=== PATIENT | male | born 1940 | race Caucasian/White ===

== ENCOUNTER → 2017-07-22 | Outpatient (CLI) | payer MEDICARE, BC | END | disposition home or self-care (01) | LOC: GMA 15:20 | PROVIDERS: ATTEND Nurse Practitioner Family | DX: E34.9 Endocrine disorder, unspecified (principal); R53.82 Chronic fatigue, unspecified; E55.9 Vitamin D deficiency, unspecified; D51.3 Other dietary vitamin B12 deficiency anemia; E29.9 Testicular dysfunction, unspecified ==

== ENCOUNTER → 2018-04-01 | Outpatient (CLI) | payer MEDICARE, BC | LOC: GMAM 11:00 | PROVIDERS: ATTEND Family Medicine | DX: E29.9 Testicular dysfunction, unspecified (principal); D51.3 Other dietary vitamin B12 deficiency anemia; E55.9 Vitamin D deficiency, unspecified; Z12.5 Encounter for screening for malignant neoplasm of prostate | CPT/HCPCS: 82306; 82607; 84403; G0103 ==

== ENCOUNTER → 2018-10-10 | Outpatient (CLI) | payer MEDICARE, BC | LOC: GMAM 10:42 | PROVIDERS: ATTEND Family Medicine | DX: D51.3 Other dietary vitamin B12 deficiency anemia (principal); E55.9 Vitamin D deficiency, unspecified ==

== ENCOUNTER 2019-03-25 16:54 | Inpatient (IN) | payer MEDICARE ==
--- NOTE | 2019-03-25 16:55 | HP ---
SUPERVISING PHYSICIAN: Chi Lazo M.D. CHIEF COMPLAINT: Right thumb pain. HISTORY OF PRESENT ILLNESS: This is a 78 year-old male patient who was seeing his physician today, Dr. Lazo, for followup of cellulitis of his right thumb. Approximately 1 week ago he was in the clinic due to right thumb pain and he was put on Bactrim as well as Keflex. He had a followup with nurse practitioner after that for his thumb and it had only slightly improved. Several days ago he became nauseated with some dizziness and felt like his equilibrium was off, so he stopped his antibiotics. When he was in the clinic today his temperature was 102.3 with blood pressure of 100/63, heart rate 88 and O2 sat was 92%. According to his primary care provider, Dr. Lazo, he looked quite ill. We discussed his case and decided to directly admit him to the hospital for cellulitis of the right thumb with concerns for sepsis and failing outpatient therapy. He was brought to the hospital and his initial labs showed a WBC of 8.8 with hemoglobin 12.4, hematocrit 35.9. ESR is pending. Lactic acid is pending. Sodium 128, chloride 95, carbon dioxide 20, BUN 12, creatinine 1.20, glucose 116, serum osmolality 257.8. C reactive protein was 11.6. Blood cultures were drawn. Urinalysis was ordered. Chest x-ray showed no acute cardiopulmonary abnormalities. PAST MEDICAL HISTORY: 1. Anxiety. 2. Coronary artery disease. 3. Hypertension. 4. Hyperlipidemia. 5. Subdural hematoma with resulting seizure disorder. His hematoma was repaired and he no longer has seizures. 6. Sleep apnea. Uses home CPAP. PAST SURGICAL HISTORY: 1. Cataract removal. 2. Scott holes. 3. Cardiac catheterization with stents. OUTPATIENT MEDICATIONS: Per the EMR and awaiting verification. ALLERGIES: NONE. HE DOES HAVE POSSIBLE ADVERSE REACTION TO HIS 2 ANTIBIOTICS THAT HE RECEIVED THIS PAST WEEK WHICH WERE BACTRIM AND CEPHALEXIN. FAMILY HISTORY: Positive for myocardial infarction, coronary artery disease and ovarian cancer. SOCIAL HISTORY: He is retired. He is . He has 1 child. He denies any smoking, ETOH or illicit drug use. REVIEW OF SYSTEMS: Negative except to pain in the right thumb as per History of Present Illness. PHYSICAL EXAMINATION: VITAL SIGNS: Temperature 97.4, heart rate 84, blood pressure 128/71, respiratory rate 16, O2 sat 93% on room air. GENERAL: This is a 78 year-old male patient lying in his hospital bed. He is in no acute distress. HEENT: Normocephalic and atraumatic. Pupils are equal and reactive. Oropharynx is clear. Oral mucous membranes are dry. NECK: Supple without mass. RESPIRATORY: Essentially clear to auscultation bilaterally. CHEST: There is equal rise and fall of the chest with inspiration and expiration. CARDIOVASCULAR: Regular rate and rhythm. GASTROINTESTINAL: Abdomen is soft, nondistended, non-tender. Bowel sounds are positive. LYMPH NODES: There is no cervical adenopathy. EXTREMITIES: His right hand shows erythema to the right thumb in the distal surface. There is also some ecchymosis surrounding that area as well as it is slightly edematous. The area of erythema is marked. It is tender to palpation especially over the distal thumb with warmth noted in that first phalanx. NEUROLOGIC: He is awake, alert and oriented times three. Cranial nerves II-XII are grossly intact. LABORATORY: Labs and films are as per the History of Present Illness. ASSESSMENT: 1. Cellulitis of the right thumb with concerns for developing sepsis or systemic inflammatory response syndrome. He had a temperature of 102.3, CRP of 11.6. Lactic acid and sed rate are pending. He has also failed outpatient therapy. 2. Dehydration secondary to #1 resulting in dizziness with poor equilibrium. 3. Mild electrolyte disturbance mainly hyponatremia and hypochloridemia most likely secondary to #1 and #2. 4. Acute renal insufficiency. Baseline creatinine is about 0.8 to 0.9. It is now 1.2. 5. Hypertension. 6. Coronary artery disease. 7. Hyperlipidemia. 8. Sleep apnea on CPAP at home. PLAN: I have admitted the patient to the hospital. He had a sepsis workup and has received a liter of fluids plus a primary IV. I have also started him on vancomycin and Zosyn. Will monitor his cultures as they become available. I have ordered a thumb x-ray for in the morning as we may need to do further studies depending on the results. He has had Lovenox for DVT prophylaxis and a PPI for ulcer prophylaxis. I will restart his home medications as soon as they are verified. I have done routine lab for in the morning and will continue to monitor him closely and follow as needed. [facility][id number] [facility]
[2019-03-25] MEDS ORDERED: SODIUM CHLORIDE 0.9% 1000ML 1,000 ML IVS PRN (17:00)
[2019-03-25] MEDS ORDERED: SODIUM CHLORIDE 0.9% 1000ML 1,000 ML ONE (17:01)
[2019-03-25] MEDS ORDERED: ONDANSETRON INJ 4 MG/2 ML VIAL IV PRN (19:26)
[2019-03-25] MEDS ORDERED: SODIUM CHLORIDE 0.9% (FLUSH) 10 ML SYG IV PRN (19:26)
[2019-03-25] MEDS ORDERED: PIPERACILLIN/TAZOBACTAM 3.375 GM in SODIUM CHLORIDE 0.9% 100ML 100 ML IVPB ONE (19:35)
--- NOTE | 2019-03-25 19:42 | RAD ---
EXAM DESCRIPTION: XR Chest,1 View CLINICAL HISTORY: 78 years Male fever TECHNIQUE: One view of the chest. COMPARISON: No prior exams provided for comparison. FINDINGS: The lungs are clear without focal consolidation, effusion, or pneumothorax. The cardiomediastinal silhouette and central pulmonary vasculature are normal. No acute osseous abnormalities. IMPRESSION: No acute cardiopulmonary abnormalities. Electronically signed by: Renita Green MD 03/25/2019 7:40 PM CDT
[2019-03-25] MEDS ORDERED: SODIUM CHLORIDE 0.9% 100ML 100 ML IVPB ONE (19:45)
[2019-03-25] MEDS ORDERED: PIPERACILLIN/TAZOBACTAM 3.375 GM VIAL IVPB ONE ×2 (19:45→20:10)
[2019-03-25] MEDS ORDERED: VANCOMYCIN PER PHARMACY INJ SCH (20:00)
[2019-03-25] MEDS: IV SET AND CAP CHANGE INJ INJ SCH (20:07)
[2019-03-25] MEDS ORDERED: VANCOMYCIN HCL INJ 500 MG VIAL ONE (20:10)
[2019-03-25] MEDS ORDERED: SODIUM CHL 0.9% 100ML MINI-BAG 100 ML IVPB ONE (20:10)
[2019-03-25] MEDS ORDERED: VANCOMYCIN HCL INJ 1,000 MG VIAL IVPB ONE (20:10)
[2019-03-25] MEDS ORDERED: SODIUM CHLORIDE 0.9% 250ML 250 ML ONE (20:10)
[2019-03-25] MEDS: ENOXAPARIN SODIUM 40 MG/0.4 ML SYG SUBCU SCH (20:35)
[2019-03-25] MEDS: SODIUM CHLORIDE 0.9% (FLUSH) 10 ML SYG IV SCH (20:36)
[2019-03-25] MEDS ORDERED: VANCOMYCIN HCL INJ 1,000 MG, VANCOMYCIN HCL INJ 250 MG in SODIUM CHLORIDE 0.9% 250ML 25... IVPB ONE (21:00)
[2019-03-25] MEDS: CARVEDILOL 3.125 MG TAB PO SCH (21:04)
[2019-03-25] MEDS: diphenhydrAMINE HCL 25 MG CAP PO SCH (21:04)
[2019-03-25] MEDS: busPIRone HCL 5 MG TAB PO SCH (21:04)
[2019-03-25] MEDS: PIPERACILLIN/TAZOBACTAM 3.375 GM in SODIUM CHLORIDE 0.9% 100ML 100 ML IVPB SCH (23:03)
[2019-03-26] MEDS: PANTOPRAZOLE SODIUM TAB 40 MG PO SCH (06:12)
[2019-03-26] MEDS ORDERED: PIPERACILLIN/TAZOBACTAM 3.375 GM VIAL IVPB ONE ×3 (06:14→20:13)
[2019-03-26] MEDS ORDERED: SODIUM CHL 0.9% 100ML MINI-BAG 100 ML IVPB ONE (06:14)
[2019-03-26] MEDS ORDERED: PANTOPRAZOLE SODIUM IV 40 MG VIAL IV SCH (06:30)
[2019-03-26] MEDS: PIPERACILLIN/TAZOBACTAM 3.375 GM in SODIUM CHLORIDE 0.9% 100ML 100 ML IVPB SCH ×3 (06:31→23:16)
[2019-03-26] MEDS ORDERED: LISINOPRIL 10 MG TAB ONE (07:19)
[2019-03-26] MEDS ORDERED: ATORVASTATIN 20 MG TAB PO ONE (07:19)
[2019-03-26] MEDS ORDERED: ESCITALOPRAM 10 MG TAB ONE (07:20)
[2019-03-26] MEDS: ASPIRIN (ENTERIC COATED) 81 MG TAB PO SCH (09:22)
[2019-03-26] MEDS: ESCITALOPRAM 10 MG TAB PO SCH (09:23)
[2019-03-26] MEDS: CARVEDILOL 3.125 MG TAB PO SCH ×2 (09:23→20:49)
[2019-03-26] MEDS: LISINOPRIL 10 MG TAB PO SCH (09:23)
[2019-03-26] MEDS: busPIRone HCL 5 MG TAB PO SCH ×2 (09:23→20:49)
[2019-03-26] MEDS: SODIUM CHLORIDE 0.9% (FLUSH) 10 ML SYG IV SCH ×2 (09:23→20:54)
--- NOTE | 2019-03-26 11:24 | PN ---
SUPERVISING PHYSICIAN: Chi Lazo MD DATE: 03/26/19 SUBJECTIVE: The patient is lying in bed asleep. He awakens easily. He feels much better today than he has been. He actually feels stronger. He has no complaints of nausea, vomiting, diarrhea, chest pain or shortness of breath. His finger actually does not hurt. OBJECTIVE: VITAL SIGNS: T-max 24 hours is 100. Heart rate 68. Blood pressure 131/71. Respiratory rate 18. O2 saturation 94% on room air. RESPIRATORY: Essentially clear to auscultation bilaterally. CARDIAC: Regular rate and rhythm. GASTROINTESTINAL: Abdomen is soft, nondistended, nontender. Bowel sounds are positive. EXTREMITIES: His bilateral pedal pulses are palpable at +2. The right thumb continues to have some ecchymosis and mild erythema to the distal portion of that thumb. It is much improved from yesterday. The skin has actually wrinkles on it. Erythema is approximately 30% better than the previous markings. There is very minimal tenderness to palpation over that area and there is no warmth. NEUROLOGIC: Awake, alert and oriented times three. LABORATORY: WBCs 7.4, hemoglobin 12.1, hematocrit 35.7. ESR from yesterday is 90. Sodium 129, potassium 4.1, chloride 99. Lactic acid from yesterday is 1.4. Magnesium 2, calcium 8.3. Urinalysis within normal limits. MICROBIOLOGY: Preliminary blood cultures are negative to date. All other labs and films have been reviewed via the EMR. ASSESSMENT: 1. Cellulitis of the right thumb with concerns for developing sepsis or systemic inflammatory response syndrome. His temperature on admission was 102.3, CRP was 11.6, ESR was 90. Lactic acid was within normal limits. He failed outpatient treatment. 2. Dehydration secondary to #1 resulting in dizziness with poor equilibrium, now mostly resolved. 3. Mild electrolyte disturbance, mainly hyponatremia and hypochloremia, improving, most likely secondary to #1 and #2. 4. Acute renal insufficiency, improving. Creatinine 1.2 on admission, today it is 1.15. His baseline is 0.8 to 0.9. 5. Hypertension, stable on medications. 6. Coronary artery disease. 7. Hyperlipidemia. 8. Sleep apnea on CPAP at home. PLAN: We will continue present supportive care. I will hold on lab tomorrow. We will repeat those in a day or so. Continue on his current IV antibiotic therapy. I have encouraged him to ambulate several times daily. I will discontinue his primary IV fluids. I have encouraged good pulmonary hygiene. Hopefully he can be discharged in the next day or so. We will continue to monitor his cultures and follow as needed. #[id number] [facility]
[2019-03-26] MEDS ORDERED: VANCOMYCIN HCL INJ 1,000 MG VIAL IVPB ONE (12:31)
[2019-03-26] MEDS ORDERED: VANCOMYCIN HCL INJ 500 MG VIAL ONE (12:31)
[2019-03-26] MEDS ORDERED: SODIUM CHLORIDE 0.9% 250ML 250 ML ONE (12:31)
[2019-03-26] MEDS: VANCOMYCIN HCL INJ 1,000 MG, VANCOMYCIN HCL INJ 500 MG in SODIUM CHLORIDE 0.9% 250ML 25... IVPB SCH (12:36)
[2019-03-26] MEDS ORDERED: SODIUM CHLORIDE 0.9% 100ML 100 ML IVPB ONE ×2 (15:26→20:13)
[2019-03-26] MEDS ORDERED: ACETAMINOPHEN 325 MG TAB ONE (17:04)
[2019-03-26] MEDS ORDERED: ACETAMINOPHEN 325 MG TAB PO PRN (17:06)
[2019-03-26] MEDS: ENOXAPARIN SODIUM 40 MG/0.4 ML SYG SUBCU SCH (20:49)
[2019-03-26] MEDS: ATORVASTATIN 20 MG TAB PO SCH (20:49)
[2019-03-26] MEDS: diphenhydrAMINE HCL 25 MG CAP PO SCH (20:49)
[2019-03-27] MEDS ORDERED: PIPERACILLIN/TAZOBACTAM 3.375 GM VIAL IVPB ONE (05:07)
[2019-03-27] MEDS ORDERED: SODIUM CHLORIDE 0.9% 100ML 100 ML IVPB ONE (05:08)
[2019-03-27] MEDS: PANTOPRAZOLE SODIUM TAB 40 MG PO SCH (06:09)
[2019-03-27] MEDS: PIPERACILLIN/TAZOBACTAM 3.375 GM in SODIUM CHLORIDE 0.9% 100ML 100 ML IVPB SCH (06:38)
[2019-03-27] MEDS: ESCITALOPRAM 10 MG TAB PO SCH (08:08)
[2019-03-27] MEDS: LISINOPRIL 10 MG TAB PO SCH (08:08)
[2019-03-27] MEDS: CARVEDILOL 3.125 MG TAB PO SCH ×2 (08:08→21:07)
[2019-03-27] MEDS: busPIRone HCL 5 MG TAB PO SCH ×2 (08:08→21:07)
[2019-03-27] MEDS: SODIUM CHLORIDE 0.9% (FLUSH) 10 ML SYG IV SCH ×2 (08:08→22:17)
[2019-03-27] MEDS: ASPIRIN (ENTERIC COATED) 81 MG TAB PO SCH (08:08)
[2019-03-27] MEDS ORDERED: VANCOMYCIN HCL INJ 500 MG VIAL ONE (12:37)
[2019-03-27] MEDS ORDERED: SODIUM CHLORIDE 0.9% 250ML 250 ML ONE (12:38)
[2019-03-27] MEDS ORDERED: VANCOMYCIN HCL INJ 1,000 MG VIAL IVPB ONE (12:38)
[2019-03-27] MEDS: VANCOMYCIN HCL INJ 1,000 MG, VANCOMYCIN HCL INJ 500 MG in SODIUM CHLORIDE 0.9% 250ML 25... IVPB SCH (12:45)
--- NOTE | 2019-03-27 17:51 | PN ---
DATE: 03/27/19 SUPERVISING PHYSICIAN: Arnaldo Minor M.D. SUBJECTIVE: The patient is walking around in his room. He feels much better. He has no complaints of shortness of breath, nausea, vomiting, diarrhea or constipation. His thumb feels much better. We discussed his discharge planning and he agreed to see Dr. Reyes on Saturday. OBJECTIVE: VITAL SIGNS: Temperature 99.1, heart rate 68, blood pressure 123/68, respiratory rate 18, O2 sat 95% on room air. RESPIRATORY: Essentially clear to auscultation bilaterally. CARDIAC: Regular rate and rhythm. GASTROINTESTINAL: Abdomen is soft, nondistended, non-tender. Bowel sounds are positive. EXTREMITIES: That right thumb continues to be ecchymotic, but there is no edema or erythema. There is no drainage. It continues to improve daily. Very minimal pain to palpation. NEUROLOGIC: He is awake, alert and oriented times three. LABORATORY: Preliminary blood cultures show no growth after 24 hours. All other labs and films have been reviewed via the EMR. ASSESSMENT: 1. Cellulitis of the right thumb with concerns for developing sepsis or systemic inflammatory response syndrome. His temperature on admission was 102.3, CRP was 11.6, ESR was 90. Lactic acid was within normal limits. He failed outpatient treatment. 2. Dehydration secondary to #1 resulting in dizziness with poor equilibrium, now mostly resolved. 3. Mild electrolyte disturbance, mainly hyponatremia and hypochloremia, improving, most likely secondary to #1 and #2. 4. Acute renal insufficiency that is improving. Creatinine was 1.2 on admission. His baseline is 0.8 to 0.9. 5. Hypertension, stable on medications. 6. Coronary artery disease. 7. Hyperlipidemia. 8. Sleep apnea on CPAP at home. PLAN: We will continue present supportive care, including his vancomycin. I spoke with Dr. Reyes, Infectious Diseases physician in [place]. She suggested that the Zosyn be discontinued and that he continue on vancomycin as an inpatient through Saturday, then he could be discharged at that time. He would need to keep his IV if possible and she will see him in the office on Saturday at 9:00 AM and she would discuss further antibiotic treatment. I will continue to hold off on lab and redo it all Saturday morning, including a CRP and his ESR. I will also do a thumb x-ray on Saturday. Otherwise will continue to monitor closely and follow as needed. [facility][id number] [facility]
[2019-03-27] MEDS: diphenhydrAMINE HCL 25 MG CAP PO SCH (21:07)
[2019-03-27] MEDS: ATORVASTATIN 20 MG TAB PO SCH (21:07)
[2019-03-27] MEDS: ENOXAPARIN SODIUM 40 MG/0.4 ML SYG SUBCU SCH (21:08)
[2019-03-28] MEDS: PANTOPRAZOLE SODIUM TAB 40 MG PO SCH (06:22)
[2019-03-28] MEDS: busPIRone HCL 5 MG TAB PO SCH ×2 (09:33→20:39)
[2019-03-28] MEDS: SODIUM CHLORIDE 0.9% (FLUSH) 10 ML SYG IV SCH ×2 (09:34→20:39)
[2019-03-28] MEDS: CARVEDILOL 3.125 MG TAB PO SCH ×2 (09:34→20:39)
[2019-03-28] MEDS: ESCITALOPRAM 10 MG TAB PO SCH (09:34)
[2019-03-28] MEDS: LISINOPRIL 10 MG TAB PO SCH (09:34)
[2019-03-28] MEDS: ASPIRIN (ENTERIC COATED) 81 MG TAB PO SCH (09:34)
[2019-03-28] MEDS: VANCOMYCIN HCL INJ 1,000 MG, VANCOMYCIN HCL INJ 500 MG in SODIUM CHLORIDE 0.9% 250ML 25... IVPB SCH (13:12)
[2019-03-28] MEDS ORDERED: SODIUM CHLORIDE 0.9% 250ML 250 ML ONE (13:51)
[2019-03-28] MEDS ORDERED: VANCOMYCIN HCL INJ 500 MG VIAL ONE (13:51)
[2019-03-28] MEDS ORDERED: VANCOMYCIN HCL INJ 1,000 MG VIAL IVPB ONE (13:51)
--- NOTE | 2019-03-28 15:14 | PN ---
DATE: 03/28/19 SUPERVISING PHYSICIAN: Arnaldo Minor M.D. SUBJECTIVE: The patient is sitting up in bed. He has been walking the hallways. Has no complaints of nausea, vomiting, diarrhea or constipation, chest pain or shortness of breath. He feels much, much better than on admission. We discussed his discharge plan tomorrow is to keep his IVs, to see Dr. Reyes on Saturday morning at 9:00 AM for further evaluation of cellulitis of his thumb. OBJECTIVE: VITAL SIGNS: Temperature 99.6, heart rate 77, blood pressure 157/64, respiratory rate 18, O2 sat 95% on room air. RESPIRATORY: Essentially clear to auscultation bilaterally. CARDIAC: Regular rate and rhythm. GASTROINTESTINAL: Abdomen is soft, nondistended, non-tender. Bowel sounds are positive. EXTREMITIES: His right thumb continues to be ecchymotic but there is no edema or erythema. There is some skin that is sloughing off around the previous area of induration. No fluctuance. No drainage. NEUROLOGIC: He is awake, alert and oriented times three. LABORATORY: Preliminary blood cultures show no growth after 48 hours. All other labs and films have been reviewed via the EMR. ASSESSMENT: 1. Cellulitis of the right thumb with concerns for developing sepsis or systemic inflammatory response syndrome. His temperature on admission was 102.3, CRP was 11.6, ESR was 90. Lactic acid was within normal limits. He failed outpatient treatment. 2. Dehydration secondary to #1 resulting in dizziness with poor equilibrium, now mostly resolved. 3. Mild electrolyte disturbance, mainly hyponatremia and hypochloremia, improving, most likely secondary to #1 and #2. 4. Acute renal insufficiency that is improving. Creatinine was 1.2 on admission. His baseline is 0.8 to 0.9. 5. Hypertension, stable on medications. 6. Coronary artery disease. 7. Hyperlipidemia. 8. Sleep apnea on CPAP at home. PLAN: We will continue present supportive care, including his vancomycin. He will get 1 dose in the morning and then hopefully he can be discharged to see Dr. Reyes in [place] on Saturday to continue his antibiotic therapy. It is to be noted he is to keep his IV for possible IV infusion therapy at Dr. Reyes's office. I have also made him an appointment to followup with Dr. Lazo. I will also check his ESR and CRP tomorrow. We need to get a disc from radiology so he can take it to Dr. Reyes's office on Saturday. Will continue to monitor closely and follow as needed. #[id number] [facility]
[2019-03-28] MEDS: diphenhydrAMINE HCL 25 MG CAP PO SCH (20:38)
[2019-03-28] MEDS: ATORVASTATIN 20 MG TAB PO SCH (20:39)
[2019-03-28] MEDS: ENOXAPARIN SODIUM 40 MG/0.4 ML SYG SUBCU SCH (20:39)
[2019-03-28] MEDS: IV SET AND CAP CHANGE INJ INJ SCH (22:39)
[2019-03-29] MEDS: PANTOPRAZOLE SODIUM TAB 40 MG PO SCH (06:07)
--- NOTE | 2019-03-29 06:32 | RAD ---
RIGHT BASILAR 03/29/2019 CLINICAL HISTORY: Cellulitis COMPARISON: None TECHNIQUE: Three views of the right thumb FINDINGS: No acute fracture. No dislocation. Narrowing of the interphalangeal joint. Juxta articular mild bony hypertrophy within the base of the distal phalanx. No fracture. No foreign body or subcutaneous emphysema. Generalized decreased bone density. IMPRESSION: 1. Right thumb interphalangeal osteoarthritis. No acute finding. Electronically signed by: Erica Sheridan DO 03/29/2019 6:29 AM CDT
[2019-03-29] MEDS ORDERED: VANCOMYCIN HCL INJ 1,000 MG, VANCOMYCIN HCL INJ 500 MG in SODIUM CHLORIDE 0.9% 250ML 25... IVPB SCH (08:00)
[2019-03-29] MEDS ORDERED: SODIUM CHLORIDE 0.9% 250ML 250 ML ONE (08:32)
[2019-03-29] MEDS ORDERED: VANCOMYCIN HCL INJ 500 MG VIAL ONE (08:32)
[2019-03-29] MEDS ORDERED: VANCOMYCIN HCL INJ 1,000 MG VIAL IVPB ONE (08:33)
[2019-03-29] MEDS: CARVEDILOL 3.125 MG TAB PO SCH (08:58)
[2019-03-29] MEDS: busPIRone HCL 5 MG TAB PO SCH (08:58)
[2019-03-29] MEDS: LISINOPRIL 10 MG TAB PO SCH (08:58)
[2019-03-29] MEDS: ASPIRIN (ENTERIC COATED) 81 MG TAB PO SCH (08:58)
[2019-03-29] MEDS: ESCITALOPRAM 10 MG TAB PO SCH (08:58)
[2019-03-29] MEDS: SODIUM CHLORIDE 0.9% (FLUSH) 10 ML SYG IV SCH (08:59)
[2019-03-29 13:42] VITALS: BP 134/75; TEMP 97; O2SAT 98
--- NOTE | 2019-03-31 09:08 | DS ---
SUPERVISING PHYSICIAN: Arnaldo Minor MD DISCHARGE DIAGNOSIS: 1. Cellulitis of the right thumb with concerns for developing sepsis or systemic inflammatory response syndrome. His temperature on admission was 102.3, CRP was 11.6, ESR was 90. Lactic acid was within normal limits. He failed outpatient treatment. 2. Dehydration secondary to #1 resulting in dizziness with poor equilibrium, now mostly resolved. 3. Mild electrolyte disturbance, mainly hyponatremia and hypochloremia, improving, most likely secondary to #1 and #2. 4. Acute renal insufficiency that is improving. Creatinine was 1.2 on admission. His baseline is 0.8 to 0.9. 5. Hypertension, stable on medications. 6. Coronary artery disease. 7. Hyperlipidemia. 8. Sleep apnea on CPAP at home. HISTORY OF PRESENT ILLNESS: This is a 78-year-old male patient who was seeing his physician today, Dr. Lazo, for followup of cellulitis of his right thumb. One week prior to his admission, he was in the clinic due to right thumb pain and he was put on Bactrim as well as Keflex. He had a followup and it had not improved. Several days later, he continued to show no improvement, plus he had some nausea with dizziness and felt like his equilibrium was off, so he stopped his antibiotics. He saw his primary care provider the next day, which is today, with a temperature of 102.3 with blood pressure of 100/63, heart rate 88 and O2 sat was 92%. He looked quite ill in the office and he was directly admitted to the hospital for for cellulitis of the right thumb with concerns for sepsis and failing outpatient therapy. HOSPITAL COURSE: His initial labs in the hospital were initially unremarkable and blood cultures were done. His C-reactive protein was high at 11.6 and his ESR was 90. He was started on vancomycin and Zosyn as well as given some fluids. He was placed on Lovenox for DVT prophylaxis and proton pump inhibitor for ulcer prophylaxis. His home medications were restarted. Chest x-ray was unremarkable. He needed very little pain management and he continued with aggressive pulmonary hygiene. I talked with Dr. Reyes, infectious diseases physician in [place], and she suggested the Zosyn be discontinued and continued on the vancomycin. She wanted him to get a dose of vancomycin through Saturday and then he could be discharged at that time. He was to followup with her on Saturday morning at 9 o'clock to discuss further treatment. Over the course of his treatment, his right thumb improved greatly. It was initially extremely swollen, erythematous with some ecchymosis and erythema. There was no drainage or fluctuance. He has good range of motion. Today, he will be discharged home with close followup with Dr. Lazo as well as Dr. Reyes in [place]. LABORATORY: Initial WBCs 8.8. Followup WBCs 7.4. Hemoglobin was stable at 12.1 with hematocrit 35.7. ESR 90. Sodium improved to 129, which was stable. Potassium 4.1. Chloride slightly low at 99. Glucose 121. Lactic acid 1.8, calcium slightly low at 8.3. C-reactive protein was 11.1. Urinalysis was within normal limits. MICROBIOLOGY: Preliminary blood culture showed no growth after 4 days. RADIOLOGY: Thumb x-ray this morning shows right thumb interphalangeal osteoarthritis, no acute findings. DISCHARGE PLAN: The patient will be discharged home in stable condition. It is to be noted that his IV was left in so he could be given IV antibiotics if necessary at Dr. Reyes's office tomorrow. Dr. Reyes's office will discontinue the IV at that time. He is to resume his usual diet and increase his activity as tolerated. All of his home medications have been restarted. He was not given any antibiotics as that will be up to Dr. Reyes. He has a followup appointment with Dr. Reyes on 03/30/19 at 9 AM. He has a followup appointment with his primary care physician, Dr. Lazo, on 04/01/19 at 3:15 PM. He is to return to the hospital or call Dr. Lazo's office for any problems or complications. DISCHARGE MEDICATIONS: 1. Atorvastatin. 2. Carvedilol. 3. Lisinopril. 4. Lexapro. 5. Buspirone. 6. Aspirin. 7. Diphenhydramine. 8. Folic acid. 9. Coenzyme Q10. 10. Cyanocobalamin. 11. Vitamin D3. 12. Prilosec. 13. Multivitamins. 14. Nitroglycerin. #[id number] [facility]
== END 2019-03-29 11:30 | disposition home or self-care (01) | DRG 603 ==
LOC: MS 16:54
PROVIDERS: ADMIT Nurse Practitioner Acute Care; ATTEND Nurse Practitioner Acute Care
DX: L03.011 Cellulitis of right finger (principal); E87.1 Hypo-osmolality and hyponatremia; E86.0 Dehydration; N28.9 Disorder of kidney and ureter, unspecified; I10 Essential (primary) hypertension; I25.10 Atherosclerotic heart disease of native coronary artery without angina pectoris; E78.5 Hyperlipidemia, unspecified; G47.30 Sleep apnea, unspecified; F41.9 Anxiety disorder, unspecified; Z95.5 Presence of coronary angioplasty implant and graft; Z88.1 Allergy status to other antibiotic agents

== ENCOUNTER → 2019-04-01 | Outpatient (CLI) | payer MEDICARE | LOC: GMAM 17:02 | PROVIDERS: ATTEND Family Medicine | DX: L03.818 Cellulitis of other sites (principal) ==

== ENCOUNTER → 2019-06-01 | Outpatient (CLI) | payer MEDICARE | LOC: GMAM 11:36 | PROVIDERS: ATTEND Family Medicine | DX: Z12.5 Encounter for screening for malignant neoplasm of prostate (principal); E53.8 Deficiency of other specified B group vitamins; E55.9 Vitamin D deficiency, unspecified; I10 Essential (primary) hypertension | CPT/HCPCS: 82306; 82607; G0103 ==

== ENCOUNTER 2020-05-09 05:41 | Emergency (ER) | payer MEDICARE ==
[2020-05-09] MEDS ORDERED: HYDROcodone 7.5MG/APAP 325MG 1 EA TAB PO ONE (06:03)
--- NOTE | 2020-05-09 06:14 | ED.PDOC ---
History of Present Illness - General Chief Complaint: Trauma Stated Complaint: rib pain Time Seen by Provider: 05/09/20 06:02 - History of Present Illness Initial Comments: 79 yo pleasant male with a pmh of CAD (4 stents), HTN comes in with with c/c of left flank pain. states he fell 2 days ago after trying to move a trailer and fell backwards. did not have loc. no head pain. pain worse with palpation and movement. Has tried alleve and lidocaine patches without benefit. Denies chest pain, shortness of breath, n/v/d. not on blood thinners, no midline back pain, no weakness, no change in bowels or urine. 8 years ago patient did slip and fall on ice, had a severe ICH requiring neurosurgery/eugenio holes. He was on plavix at that time. Allergies/Adverse Reactions: Allergies NO KNOWN ALLERGY Allergy (Verified 05/09/20 05:57) Home Medications: Ambulatory Orders Aspirin [Aspirin Adult Low Strengt] 81 mg PO DAILY 03/25/19 Atorvastatin Calcium 40 mg PO DAILY 03/25/19 Carvedilol 3.125 mg PO BID 03/25/19 Cholecalciferol [D3 Vitamin] 400 unit PO DAILY 03/25/19 Coenzyme Q10 (Ubidecarenone) [Co Q-10] 100 mg PO DAILY 03/25/19 Cyanocobalamin [B12] 1,500 mcg PO DAILY 03/25/19 Escitalopram Oxalate [Lexapro] 20 mg PO DAILY 03/25/19 Folic Acid 400 mcg PO DAILY 03/25/19 Lisinopril 20 mg PO DAILY 03/25/19 Multiple Vitamins W/ Minerals [Preservision Areds] 1 tab PO BID 03/25/19 Nitroglycerin 0.4 SL PRN 03/25/19 Omeprazole [Prilosec Cap] 20 mg PO DAILY 03/25/19 busPIRone HCL [Buspar] 5 mg PO BID 03/25/19 diphenhydrAMINE HCL [Benadryl] 25 mg PO BEDTIME 03/25/19 Calcium 500 mg PO DAILY 05/09/20 Magnesium 250 mg PO DAILY 05/09/20 Review of Systems - Review of Systems Constitutional: Denies: diaphoresis, fever, malaise EENTM: Denies: eye pain, blurred vision, tearing, double vision, ear pain, ear discharge Respiratory: Denies: cough, orthopnea, short of breath, stridor Cardiology: Denies: chest pain, edema, palpitations, syncope Gastrointestinal/Abdominal: Denies: abdominal pain, constipation, diarrhea, nausea, vomiting Musculoskeletal: States: back pain. Denies: joint pain, joint swelling, muscle pain, muscle stiffness, neck pain Skin: Denies: change in color, dryness, rash Neurological: Denies: depressed, headache, numbness, paresthesia, tingling, tremors Hematologic/Lymphatic: Denies: anemia, blood clots All other Systems: Reviewed and Negative Past Medical History (General) - Patient Medical History Hx Seizures: Yes - x1 with a fall and brain bleed and eugenio holes Hx Stroke: No Hx Dementia: No Hx Asthma: No Hx of COPD: No Hx Cardiac Disorders: Yes - 4 cardiac stents Hx Congestive Heart Failure: No Hx Pacemaker: No Hx Hypertension: Yes Hx Thyroid Disease: No Hx Diabetes: No Hx Gastroesophageal Reflux: Yes Hx Renal Disease: No Hx Cancer: No Hx of HIV: No Hx Hepatitis C: No Hx MRSA: No Surgical History: tonsillectomy - Vaccination History Hx Tetanus, Diphtheria Vaccination: Yes - 2019 Hx Influenza Vaccination: Yes Hx Pneumococcal Vaccination: Yes - Social History Hx Tobacco Use: No Hx Alcohol Use: Yes - daily either beer, wine or liquor Hx Substance Use: No Hx Physical Abuse: No Hx Emotional Abuse: No Family Medical History - Family History Father Living Status: Hx Cardiac Disease: Yes Mother Living Status: Still Living Physical Exam - Physical Exam General Appearance: Alert, Comfortable, No apparent distress, Well Developed, Well Groomed, Well Hydrated, Well Nourished Ears, Nose, Throat: hearing grossly normal, normal ENT inspection, normal pharynx Neck: full range of motion, supple, normal inspection, carotid bruit Respiratory: chest non-tender, lungs clear, normal breath sounds, no respiratory distress Cardiovascular/Chest: normal peripheral pulses, regular rate, rhythm, no edema, no gallop, no JVD, no murmur Peripheral Pulses: radial,right: 2+, radial,left: 2+, dorsalis pedis,right: 2+ Gastrointestinal/Abdominal: normal bowel sounds, non tender, soft, no organomegaly, no pulsatile mass Rectal Exam: deferred Back Exam: normal inspection, other - left cva tenderness, even to light touch. 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 no rojas sign, no raccoon eyes, no nasal drainage. Progress - Progress Progress: 05/09/20 06:24 The data reviewed when caring for this patient included: nurse notes etc. The history and assessments from nurses notes were reviewed and considered, and the patient's home medication list was also reviewed and considered. My assessment and the results of testing completed here in the ED were discussed with the patient/family. All questions were answered, and they express understanding of my assessment and the plan. FAST Exam negative. Given norco 7.5 mg. Will give morphine if pain continues. Xray ribs, CT head. 05/09/20 06:38 when patient left for xray does note he does not have the best memory since his ICH in 2011. Xray shows bilateral posterior rib fracture age undetermined. Due to age, hx of memory problems, hx ICH, will order CT head, chest, abdomen and pelvis. 05/09/20 07:[address] Gomez. Pending labs, CT scans, pain control. Departure - Departure Clinical Impression: Fall (on) (from) unspecified stairs and steps, initial encounter Ribs, multiple fractures Qualifiers: Encounter type: initial encounter Fracture type: closed Laterality: bilateral Qualified Code(s): S22.43XA - Multiple fractures of ribs, bilateral, initial encounter for closed fracture Condition: Fair Departure Forms: ED Discharge - Pt. Copy, Patient Portal Self Enrollment Instructions: DI for Trauma Referrals: Chi Lazo MD [Primary Care Provider] - 1-2 Weeks Home Medications: Ambulatory Orders Aspirin [Aspirin Adult Low Strengt] 81 mg PO DAILY 03/25/19 Atorvastatin Calcium 40 mg PO DAILY 03/25/19 Carvedilol 3.125 mg PO BID 03/25/19 Cholecalciferol [D3 Vitamin] 400 unit PO DAILY 03/25/19 Coenzyme Q10 (Ubidecarenone) [Co Q-10] 100 mg PO DAILY 03/25/19 Cyanocobalamin [B12] 1,500 mcg PO DAILY 03/25/19 Escitalopram Oxalate [Lexapro] 20 mg PO DAILY 03/25/19 Folic Acid 400 mcg PO DAILY 03/25/19 Lisinopril 20 mg PO DAILY 03/25/19 Multiple Vitamins W/ Minerals [Preservision Areds] 1 tab PO BID 03/25/19 Nitroglycerin 0.4 SL PRN 03/25/19 Omeprazole [Prilosec Cap] 20 mg PO DAILY 03/25/19 busPIRone HCL [Buspar] 5 mg PO BID 03/25/19 diphenhydrAMINE HCL [Benadryl] 25 mg PO BEDTIME 03/25/19 Calcium 500 mg PO DAILY 05/09/20 Magnesium 250 mg PO DAILY 05/09/20
--- NOTE | 2020-05-09 06:29 | RAD ---
EXAM DESCRIPTION: X-ray single view chest. CLINICAL HISTORY: 79 years Male, fall COMPARISON: 03/25/2019 TECHNIQUE: Single portable x-ray view of the chest performed on 05/09/2020 at 5:57 AM FINDINGS: The lungs are well expanded and are clear. There is probable minimal fibrosis and/or subsegmental atelectasis in the lung bases. There is no evidence of a pneumothorax. The cardiac silhouette is stable and mildly prominent. The mediastinal contours are normal. There are age indeterminate fractures of the posterior lateral right right fourth and fifth ribs. There are questionable fractures involving the posterior right seventh and eighth ribs. No focal soft tissue abnormalities are seen. Lines and tubes: None. IMPRESSION: 1. Minimal fibrosis and/or atelectasis suspected in the inferior hemithoraces. 2. Age indeterminant fractures of the posterior lateral right fourth and fifth ribs and possibly posterior right seventh and eighth ribs. Electronically signed by: Ashley Calero DO 05/09/2020 6:27 AM CDT
--- NOTE | 2020-05-09 07:44 | CT ---
EXAMINATION: CT Head without contrast INDICATION: Fall. Head injury. COMPARISON: November 09, 2013 TECHNIQUE: Axial CT scan of the head was obtained without intravenous contrast. Coronal and sagittal reformats were provided for further interpretation. This CT exam was performed using one or more of the following dose reduction techniques: Automated exposure control, Adjustment of the mA and/or kV according to patient size, Use of iterative reconstruction technique FINDINGS: Basilar Cisterns: Intact. Brain: Symmetric extra-axial spaces. Fernandes-white matter differentiation is maintained. No intracranial hemorrhage. Ventricles: No hydrocephalus. No mass effect or midline shift. Orbits Orbits and orbital contents are grossly normal. Bones: Prior eugenio hole in the high left frontal lobe as seen on prior studies. Soft tissues: Intact Sinuses: Clear Mastoid air cells: Clear IMPRESSION: No intracranial hemorrhage, mass effect, or midline shift. Electronically signed by: Ray Bar MD 05/09/2020 7:42 AM CDT
--- NOTE | 2020-05-09 07:53 | CT ---
EXAMINATION: CT chest, abdomen, and pelvis with contrast. INDICATION: Fall. Chest and abdominal pain. COMPARISON: None TECHNIQUE: Axial CT scan of the chest, abdomen, and pelvis was obtained after the uneventful administration of intravenous contrast. Coronal and sagittal reformats were provided. This CT exam was performed using one or more of the following dose reduction techniques: Automated exposure control, Adjustment of the mA and/or kV according to patient size, Use of iterative reconstruction technique FINDINGS: PULMONARY ARTERY: Normal in caliber. HEART: Heart is normal in size. Coronary artery calcifications are present. THORACIC AORTA: Minimal atheromatous changes throughout the thoracic aorta. No aneurysm CHEST WALL: Normal THYROID: No thyroid nodules. THORACIC LYMPH NODES: No pathologically enlarged axillary, mediastinal, or hilar lymph nodes. PRIMARY AIRWAYS: Primary airways are patent. LUNGS: Bilateral lower and posterior lung airspace opacities, favored to represent chronic fibrotic changes. No pleural effusion. No suspicious nodules. CHEST OSSEOUS STRUCTURES: Healed fracture of the posterolateral fourth, fifth right ribs. There are incompletely healed fractures of the posterior sixth sixth and seventh right ribs. Moderate degenerative changes of both shoulders. OTHER THORACIC FINDINGS: N/A LIVER: Cyst within the left hepatic lobe measuring GALLBLADDER AND CBD: Normal. PANCREAS: Normal. SPLEEN: Not enlarged. ADRENAL GLANDS: Normal. KIDNEYS AND URETERS: 7 mm right renal cyst. No hydronephrosis or hydroureter. URINARY BLADDER: Question of some indistinctness about the urinary bladder. PELVIS: Prostate measures 4.5 cm. No free fluid in the pelvis. BOWEL: Gas and stool throughout the colon. Appendix not visualized. No inflammatory changes in the right lower quadrant to suggest acute appendicitis No dilated loops of small bowel. No obstruction. Moderate hiatus hernia. ABDOMINAL AORTA AND VASCULATURE: Extensive atheromatous changes throughout the abdominal aorta. No aneurysm ABDOMINAL AND PELVIC LYMPH NODES: No pathologically enlarged retroperitoneal, mesenteric, or pelvic lymph nodes. ABDOMINAL WALL: Normal. MESENTERY/ASCITES: Normal. OTHER ABDOMINAL AND PELVIC FINDINGS: N/A ABDOMINAL AND PELVIC OSSEOUS STRUCTURES: Mild degenerative changes of both hips. Moderate multilevel degenerative changes of the spine, worst at L5-S1 IMPRESSION: 1. No acute process in the chest, abdomen, or pelvis. 2. No acute traumatic sequela noted. 3. Some indistinctness noted about the urinary bladder which could be related to cystitis in the right clinical setting. Correlation with urinalysis is recommended. Electronically signed by: Ray Bar MD 05/09/2020 7:52 AM CDT
[2020-05-09 08:48] VITALS: BP 151/78; TEMP 96.8; O2SAT 98
== END 2020-05-09 08:47 | disposition home or self-care (01) ==
LOC: ER 05:41
DX: S22.43XA Multiple fractures of ribs, bilateral, initial encounter for closed fracture (principal); I25.10 Atherosclerotic heart disease of native coronary artery without angina pectoris; I10 Essential (primary) hypertension; K21.9 Gastro-esophageal reflux disease without esophagitis; W10.9XXA Fall (on) (from) unspecified stairs and steps, initial encounter; Y93.89 Activity, other specified; Z95.5 Presence of coronary angioplasty implant and graft; Z79.899 Other long term (current) drug therapy; Z79.82 Long term (current) use of aspirin; Z98.890 Other specified postprocedural states; Z87.820 Personal history of traumatic brain injury

== ENCOUNTER → 2020-08-24 | Outpatient (CLI) | payer MEDICARE | LOC: GMAM 10:41 | PROVIDERS: ATTEND Family Medicine | DX: E53.8 Deficiency of other specified B group vitamins (principal); E55.9 Vitamin D deficiency, unspecified; Z12.5 Encounter for screening for malignant neoplasm of prostate; I10 Essential (primary) hypertension; E29.9 Testicular dysfunction, unspecified | CPT/HCPCS: 82306; 82607; 84403; G0103 ==